=== PATIENT | female | born 1980 | race Caucasian/White ===

== ENCOUNTER 2016-09-19 16:18 | Emergency (ER) | payer MEDICAID ==
[~2016-09-19] VITALS: Ht 162.6 cm; Wt 75.0 kg
[2016-09-19] MEDS ORDERED: OXYCODONE HCL/ACETAMINOPHEN 5/325MG TABLET PO ONE (17:00)
[2016-09-19 20:15] VITALS: BP 127/72
== END 2016-09-19 20:21 | disposition home or self-care (01) ==
LOC: ER 16:26
DX: S00.83XA Contusion of other part of head, initial encounter (principal); Y04.8XXA Assault by other bodily force, initial encounter; Y07.499 Other family member, perpetrator of maltreatment and neglect; Y93.89 Activity, other specified; Y92.098 Other place in other non-institutional residence as the place of occurrence of the external cause; R03.0 Elevated blood-pressure reading, without diagnosis of hypertension
CPT/HCPCS: 70450; 72125; 99284; Z7610

== ENCOUNTER 2016-11-13 15:32 | Emergency (ER) | payer MEDICAID ==
[~2016-11-13] VITALS: Ht 154.9 cm; Wt 67.0 kg
[2016-11-13] MEDS ORDERED: ONDANSETRON HCL 4MG/2ML VIAL IV STA (22:13)
[2016-11-13] MEDS ORDERED: KETOROLAC 30MG/ML VIAL IV STA (22:13)
[2016-11-13 22:26] LABS: CLARITY URINE CLOUDY (CLEAR); COLOR URINE DARK YELLOW (YELLOW); GLUCOSE URINE NEGATIVE (NEGATIVE); KETONES URINE NEGATIVE (NEGATIVE); LEUKOCYTE ESTERASE URINE NEGATIVE (NEGATIVE); NITRITE URINE POSITIVE (NEGATIVE); OCCULT BLOOD URINE 1+ (NEGATIVE); PH URINE 5.5 (4.5-8.0); PROTEIN URINE NEGATIVE (NEGATIVE)
[2016-11-13 22:52] LABS: BASOPHILS % 0.4 % (0.0-2.0); EOSINOPHILS % 1.2 % (0.0-5.0); HEMATOCRIT. 37.6 % (36.0-48.0); HEMOGLOBIN. 12.6 g/dL (12.0-16.0); LYMPHOCYTES % 29.6 % (20.0-50.0); MEAN CORPUSCULAR HEMOGLOBIN 27.4 pg (28.0-32.0); NEUTROPHILS % 58.8 % (40.0-76.0); PLATELET 214 x1000/uL (130-400); RED BLOOD CELL COUNT 4.59 mill/uL (4.2-5.4)
[2016-11-13 22:56] LABS: CHLORIDE 106 mEq/L (98-107)
[2016-11-13 23:03] LABS: CARBON DIOXIDE 27 mEq/L (21-32)
[2016-11-14 01:25] VITALS: BP 100/55
== END 2016-11-14 01:25 | disposition home or self-care (01) ==
LOC: ER 15:32
DX: N39.0 Urinary tract infection, site not specified (principal); Z90.49 Acquired absence of other specified parts of digestive tract
CPT/HCPCS: 36415; 74176; 80053; 81001; 83690; 85025; 96374; 96375; 99285; J1885; J2405; J7030; Z7610

== ENCOUNTER 2017-05-25 18:41 | Emergency (ER) | payer MEDICAID ==
[~2017-05-25] VITALS: Ht 157.5 cm; Wt 68.0 kg
[2017-05-25 19:20] LABS: CHLORIDE 105 mEq/L (98-107)
[2017-05-25 19:21] LABS: BASOPHILS % 0.6 % (0.0-2.0); EOSINOPHILS % 0.7 % (0.0-5.0); HEMATOCRIT. 39.4 % (36.0-48.0); HEMOGLOBIN. 13.1 g/dL (12.0-16.0); LYMPHOCYTES % 21.5 % (20.0-50.0); MEAN CORPUSCULAR VOLUME 81.1 fL (81.0-99.0); MEAN PLATELET VOLUME 8.6 fl (7.4-10.4); MONOCYTES % 6.3 % (2.0-8.0); NEUTROPHILS % 70.9 % (40.0-76.0); PLATELET 299 x1000/uL (130-400); RED BLOOD CELL COUNT 4.85 mill/uL (4.2-5.4); RED CELL DISTRIBUTION WIDTH 12.9 % (11.6-14.6)
[2017-05-25 19:21] LABS: CLARITY URINE CLEAR (CLEAR); COLOR URINE YELLOW (YELLOW); KETONES URINE NEGATIVE (NEGATIVE); LEUKOCYTE ESTERASE URINE NEGATIVE (NEGATIVE); NITRITE URINE NEGATIVE (NEGATIVE); OCCULT BLOOD URINE 1+ (NEGATIVE); PH URINE 5.5 (4.5-8.0); PROTEIN URINE NEGATIVE (NEGATIVE); SPECIFIC GRAVITY URINE 1.029 (1.005-1.030)
[2017-05-25 19:22] LABS: PROTHROMBIN TIME 10.6 sec (9.4-11.6)
[2017-05-25] MEDS ORDERED: MORPHINE SULFATE 4 MG/ML CPJ (NOT FOR IM USE) IV ONE (23:00)
[2017-05-25] MEDS ORDERED: ONDANSETRON HCL 4MG/2ML VIAL IV ONE (23:00)
[2017-05-26] MEDS ORDERED: DIPHENHYDRAMINE 50MG/ML VIAL IV ONE (01:45)
[2017-05-26] MEDS ORDERED: SODIUM CHLORIDE 0.9% 1,000 ML IV ONE (04:07)
[2017-05-26 06:10] VITALS: BP 101/53
== END 2017-05-26 06:15 | disposition home or self-care (01) ==
LOC: ER 21:01
DX: N83.201 Unspecified ovarian cyst, right side (principal); Z90.49 Acquired absence of other specified parts of digestive tract; Z98.890 Other specified postprocedural states
CPT/HCPCS: 36415; 74176; 76856; 80053; 81003; 83690; 85025; 85610; 96361; 96374; 96375; 99285; J1200; J2270; J2405; J7030; Z7610

== ENCOUNTER 2018-04-29 18:05 | Emergency (ER) | payer MEDICAID ==
[~2018-04-29] VITALS: Ht 154.9 cm; Wt 66.0 kg
[2018-04-29] MEDS ORDERED: KETOROLAC 60MG/2ML VIAL IM ONE (20:30)
[2018-04-29 20:52] VITALS: BP 104/52
== END 2018-04-29 20:53 | disposition home or self-care (01) ==
LOC: ER 18:05
DX: M54.30 Sciatica, unspecified side (principal); Z90.49 Acquired absence of other specified parts of digestive tract
CPT/HCPCS: 96372; 99283; J1885

== ENCOUNTER 2021-12-03 10:21 | Emergency (ER) | payer MEDICAID ==
[~2021-12-03] VITALS: Ht 157.5 cm; Wt 71.0 kg
[2021-12-03] MEDS ORDERED: KETOROLAC 60MG/2ML VIAL IM STA (10:53)
[2021-12-03 11:06] LABS: BASOPHILS % 0.5 % (0.0-2.0); EOSINOPHILS % 0.3 % (0.0-5.0); HEMATOCRIT. 40.9 % (36.0-48.0); HEMOGLOBIN. 13.5 g/dL (12.0-16.0); LYMPHOCYTES % 14.4 % (20.0-50.0); MEAN CORPUSCULAR HEMOGLOBIN 26.8 pg (28.0-32.0); MEAN CORPUSCULAR VOLUME 81.1 fL (81.0-99.0); MEAN PLATELET VOLUME 8.9 fl (7.4-10.4); MONOCYTES % 5.8 % (2.0-8.0); PLATELET 320 x1000/uL (130-400); RED BLOOD CELL COUNT 5.04 mill/uL (4.2-5.4); RED CELL DISTRIBUTION WIDTH 13.7 % (11.6-14.6)
[2021-12-03 11:12] LABS: CHLORIDE 109 mEq/L (98-107)
[2021-12-03 11:38] VITALS: BP 117/49
[2021-12-03 11:59] LABS: CLARITY URINE CLOUDY (CLEAR); COLOR URINE YELLOW (YELLOW); KETONES URINE TRACE (NEGATIVE); NITRITE URINE NEGATIVE (NEGATIVE); OCCULT BLOOD URINE 2+ (NEGATIVE); PROTEIN URINE TRACE (NEGATIVE); UROBILINOGEN URINE 0.2 E.U./dL (0.2-1.0)
[2021-12-03 12:00] LABS: LEUKOCYTE ESTERASE URINE NEGATIVE (NEGATIVE)
[2021-12-03] MEDS ORDERED: IBUP-2029 MT (12:41)
[2021-12-03] MEDS ORDERED: CEPH500C2 MT (12:41)
== END 2021-12-03 13:10 | disposition home or self-care (01) ==
LOC: ER 10:21
DX: N10 Acute pyelonephritis (principal); Z90.49 Acquired absence of other specified parts of digestive tract
CPT/HCPCS: 36415; 80053; 81003; 81025; 85025; 96372; 99283; J1885

== ENCOUNTER 2023-01-25 21:02 | Emergency (ER) | payer MEDICAID ==
[~2023-01-25] VITALS: Ht 157.5 cm; Wt 75.0 kg
[~2023-01-25 21:02] MED LIST: CEPH500C2 MT; IBUP-2029 MT
[2023-01-25 21:04] VITALS: BP 127/54; TEMP 98.8; O2SAT 97
[2023-01-25 21:23] VITALS: PULSE 121; RESP 16
[2023-01-25] MEDS ORDERED: ALBUTEROL (0.083%) 2.5MG/3ML NEB HHN ONE (23:00)
[2023-01-25] MEDS ORDERED: GUAI600T26 MT (23:11)
== END 2023-01-25 23:50 | disposition home or self-care (01) ==
LOC: ER 21:02
DX: B34.9 Viral infection, unspecified (principal); Z90.49 Acquired absence of other specified parts of digestive tract; Z98.890 Other specified postprocedural states
CPT/HCPCS: 71045; 94640; 99283; Z7610 ×3

== ENCOUNTER 2024-03-30 11:41 | Emergency (ER) | payer MEDICAID ==
[~2024-03-30] VITALS: Ht 157.5 cm; Wt 74.8 kg
[~2024-03-30 11:41] MED LIST changes: +GUAI600T26 MT
[2024-03-30 11:49] VITALS: O2SAT 96
[2024-03-30 13:06] LABS: BASOPHILS % 0.1 % (0.0-2.0); CHLORIDE 105 mEq/L (98-107); EOSINOPHILS % 1.1 % (0.0-5.0); HEMATOCRIT. 38.2 % (36.0-48.0); HEMOGLOBIN. 12.1 g/dL (12.0-16.0); LYMPHOCYTES % 13.4 % (20.0-50.0); MEAN CORPUSCULAR HEMOGLOBIN 25.5 pg (28.0-32.0); MEAN CORPUSCULAR HGB CONC 31.8 g/dL (31.0-37.0); MEAN CORPUSCULAR VOLUME 80.4 fL (81.0-99.0); MEAN PLATELET VOLUME 8.4 fl (7.4-10.4); MONOCYTES % 8.9 % (2.0-8.0); NEUTROPHILS % 76.5 % (40.0-76.0); PLATELET 322 x1000/uL (130-400); POTASSIUM 3.9 mEq/L (3.5-5.1); RED BLOOD CELL COUNT 4.75 mill/uL (4.2-5.4); RED CELL DISTRIBUTION WIDTH 13.9 % (11.6-14.6); SODIUM 139 mEq/L (136-145); WHITE BLOOD COUNT 13.2 x1000/uL (4.5-11.0)
[2024-03-30 13:07] LABS: CARBON DIOXIDE 26 mEq/L (21-32)
[2024-03-30 13:08] LABS: CALCIUM 9.8 mg/dL (8.7-10.4)
[2024-03-30 13:12] LABS: CREATININE 0.8 mg/dL (0.6-1.0); GLUCOSE 93 mg/dL (70-105); UREA NITROGEN BLOOD 11 mg/dL (9-23)
[2024-03-30 13:26] LABS: TROPONIN I HIGH SENSITIVITY < 4 ng/L (3.0-34)
[2024-03-30] MEDS: SODIUM CHLORIDE 0.9% 1,000 ML IV ONE (15:07)
[2024-03-30] MEDS: ACETAMINOPHEN 325MG TABLET PO ONE (15:11)
[2024-03-30] MEDS ORDERED: BENZ100C86 MT (16:55)
[2024-03-30] MEDS ORDERED: TOPUD MT (16:55)
[2024-03-30 17:03] VITALS: BP 118/63; PULSE 105; RESP 18; TEMP 36.8; O2SAT 96
== END 2024-03-30 17:04 | disposition home or self-care (01) ==
LOC: ER 11:41
DX: B34.9 Viral infection, unspecified (principal); Z90.49 Acquired absence of other specified parts of digestive tract; Z98.890 Other specified postprocedural states; Z79.899 Other long term (current) drug therapy
CPT/HCPCS: 80048; 81025; 85025; 84484; 36415; 71045; 93005; 99285; J7030; Z7610